=== PATIENT | male | born 1945 | race Caucasian/White ===

== ENCOUNTER 2016-04-08 06:05 | Day surgery (SDC) | payer MEDICARE ==
[~2016-04-08] VITALS: Ht 175.3 cm; Wt 99.2 kg
[2016-04-08 06:43] VITALS: BP 192/87; PULSE 63; RESP 18; TEMP 97; O2SAT 99
[2016-04-08] MEDS ORDERED: LACTATED RINGER'S 1000 ML IV SCH (06:45)
[2016-04-08] MEDS ORDERED: METOPROLOL TARTRATE 25 MG TAB PO PRN (06:45)
[2016-04-08] MEDS ORDERED: INSULIN HUMAN REGULAR 1,000 UNITS/10 ML VIAL SQ PRN (06:45)
[2016-04-08] MEDS ORDERED: SODIUM CHLORID 0.9% 500 ML IV SCH (06:45)
[2016-04-08] MEDS ORDERED: MUPIROCIN 2% OINT 1 APPLIC/GM SYR NASAL SCH (07:00)
[2016-04-08] MEDS ORDERED: NO Heparin, Lovenox, Coumadin at least 12 hours prior to procedure. XX PRN (07:00)
[2016-04-08] MEDS ORDERED: POVIDONE IODINE 5% (ANTISEPSIS KIT) 4 APPLICATIONS EACH NARE SCH (07:00)
[2016-04-08] MEDS ORDERED: WARF-20 PO (07:00)
[2016-04-08] MEDS ORDERED: CENTTAB PO (07:00)
[2016-04-08] MEDS ORDERED: Hold AM Insulin & AM Hypoglycemic medications in diabetic patients XX PRN (07:00)
[2016-04-08] MEDS ORDERED: CALC0.25 PO (07:00)
[2016-04-08] MEDS ORDERED: NS 1000 ML IV SCH (07:00)
[2016-04-08] MEDS ORDERED: LUMI0.01 EACH EYE (07:00)
[2016-04-08] MEDS ORDERED: GLIP5TAB8 PO (07:00)
[2016-04-08] MEDS ORDERED: FURO40TA PO (07:00)
[2016-04-08] MEDS ORDERED: OMEP40CA2 PO (07:00)
[2016-04-08] MEDS ORDERED: ALLO100T PO (07:00)
[2016-04-08] MEDS ORDERED: AMLO5TAB2 PO (07:00)
[2016-04-08] MEDS ORDERED: FLUO40CA PO (07:00)
[2016-04-08] MEDS ORDERED: CHLORHEXIDINE GLUCONATE 2 % 1 PACK (2 CLOTHS) TOP SCH (07:00)
[2016-04-08] MEDS ORDERED: VANCOMYCIN 1000 MG/NS 250 ML IV SCH ×2 (07:00)
[2016-04-08] MEDS ORDERED: VICT18IN SQ (07:00)
[2016-04-08 07:10] LABS: AUTOMATED NEUTROPHIL # 5.2 TH/MM3 (1.8-7.7); BASOPHIL # 0.1 TH/MM3 (0-0.2); BASOPHIL % 0.8 % (0.0-2.0); HEMATOCRIT 34.3 % (39.0-51.0); HEMO FLAGS DIFF FINAL; LYMPH % 12.3 % (9.0-44.0); LYMPHOCYTE # 0.8 TH/MM3 (1.0-4.8); MEAN CELL VOLUME 95.5 FL (80.0-100.0); MEAN CORPUSCULAR HEMOGLOBIN 31.6 PG (27.0-34.0); MEAN CORPUSCULAR HGB CONC 33.1 % (32.0-36.0); MONO % 10.2 % (0.0-8.0); NEUT % 76.7 % (16.0-70.0); PLATELET COUNT 173 TH/MM3 (150-450); RED BLOOD COUNT 3.59 MIL/MM3 (4.50-5.90); RED CELL DISTRIBUTION WIDTH 16.5 % (11.6-17.2); WHITE BLOOD COUNT 6.7 TH/MM3 (4.0-11.0)
[2016-04-08 07:21] LABS: INTERNATIONAL NORMALIZED RATIO 1.1 RATIO; PROTHROMBIN TIME - PATIENT 11.8 SEC (9.8-11.6)
[2016-04-08 07:22] LABS: BICARBONATE 23.9 MEQ/L (21.0-32.0); POTASSIUM 4.9 MEQ/L (3.5-5.1)
[2016-04-08] MEDS ORDERED: MIDAZOLAM HCL 2 MG/2 ML VIAL ONE (08:04)
[2016-04-08] MEDS ORDERED: VANCOMYCIN 500 MG VIAL ONE (08:17)
[2016-04-08] MEDS ORDERED: LIDOCAINE HCL 2% 50 ML VIAL ONE (08:17)
[2016-04-08] MEDS ORDERED: PROPOFOL 200 MG/20 ML AMP IV ONE (09:00)
[2016-04-08] MEDS ORDERED: DO NOT ADM ANY ANTICOAGULANT DRUGS XX PRN ×2 (09:42→09:55)
[2016-04-08] MEDS ORDERED: TEMAZEPAM 15 MG CAP PO PRN (09:45)
[2016-04-08] MEDS ORDERED: BACITRACIN OINT 0.9 GM PKT TOP PRN (09:45)
[2016-04-08] MEDS ORDERED: ALUMINUM/MAGNESIUM/SIMETH 30 ML CUP PO PRN (09:45)
[2016-04-08] MEDS ORDERED: ACETAMINOPHEN/CODEINE 300 MG/30 MG TAB PO PRN ×2 (09:45)
[2016-04-08] MEDS ORDERED: SODIUM CHLORIDE 0.9% FLUSH 5 ML FLUSH IVF PRN (09:45)
[2016-04-08] MEDS ORDERED: ZOLPIDEM TARTRATE 5 MG TAB PO PRN (09:45)
[2016-04-08] MEDS ORDERED: ONDANSETRON HCL 4 MG/2 ML VIAL IV PRN (09:45)
[2016-04-08] MEDS ORDERED: MAGNESIUM HYDROXIDE SUSP 30 ML CUP PO PRN (09:45)
[2016-04-08] MEDS ORDERED: PERC5TAB12 PO (09:53)
--- NOTE | 2016-04-08 10:06 | RADRPT ---
EXAM DATE/TIME: 04/08/2016 09:45 [place] COMPARISON: No previous studies available for comparison. INDICATIONS : Post pacemaker placement. MEDICAL HISTORY : Hypertension. Diabetes mellitus type II. A-fib, Sleep Apnea. SURGICAL HISTORY : CABG. ENCOUNTER: Initial ACUITY: 1 day PAIN SCORE: 0/10 LOCATION: Bilateral chest FINDINGS: A single view of the chest demonstrates the lungs to be symmetrically aerated without evidence of mas s, infiltrate or effusion. There is no evidence of pneumothorax. The heart size is enlarged. There is evidence of previous cardiothoracic surgery. There is a pacemaker overlying the left chest. The bony structures are grossly intact. There is some mild prominence of the pulmonary vasculature.. CONCLUSION: 1. No evidence of pneumothorax. 2. Compensated cardiomegaly with some mild pulmonary venous congestion. Ye Rodriguez MD on April 08, 2016 at 10:02 Board Certified Radiologist. This report was verified electronically.
--- NOTE | 2016-04-08 12:21 | MA ---
cc: NERY POON MD,DONTAE SOUSA,CHERYL HOOK MAI, M.D. DATE: 04/08/2016 DATE OF : 1945 CLINICAL INDICATION The patient is a 70-year-old gentleman with symptomatic ischemic cardiomyopathy, EF of 25%. The patient also has sinus node dysfunction with intermittent symptomatic bradycardia. Currently the patient is in atrial flutter. As the patient came in for a dual-chamber ICD we planned to do atrial flutter ablation later on. The patient had coronary artery disease status post bypass with ischemic cardiomyopathy, EF of 25%. The patient also has chronic systolic heart failure, NYHA class 3. DEVICE INFORMATION [employer] App dual-chamber ICD, Protego, S65, reference number [id number], serial number [id number]. The RV ICD lead is serial number [id number]. The right atrial lead is reference number [id number], serial number [id number]. Right atrial lead sensing atrial flutter is 3.3 millivolts, impedance 490 ohms. RV lead sensing is 15.2 mV, impedance 526 ohms, threshold 0.6 volts at 0.4 milliseconds. There is no stimulation maximum output. Final setting is DDD 60-130 with mode switch on, VT setting 170 and 214, VF setting more than 214. PROCEDURE IN DETAIL The patient was sedated by the anesthesiologist using MAC. The patient was prepped and draped in sterile fashion. The left upper chest was anesthetized. A small incision was made. The pocket was opened. Using a first rib approach we are able to access the axillary vein twice. Using an 8-Portuguese sheath we placed RV ICD lead in the RV apex with good sensing and capture threshold. There was no diaphragmatic stimulation maximum output. The second lead was placed in the right atrial appendage with good sensing of atrial flutter, R-wave sensing 3.3 millivolts. Again we decided to consider atrial flutter ablation later on. Both leads were secured to the muscle layer and attached to the device. Appropriate function of the device and leads was verified. The pocket was copiously irrigated with antibiotic solution and closed in three separate layers. We did check the leads which showed normal function but given history of atrial flutter and the patient off Coumadin we decided to hold off DFT. We did lead testing but would defer the DFT. We plan to bring the patient back for atrial flutter ablation along with BARBARA. CONCLUSION 1. Successful [employer] dual-chamber ICD implantation left upper chest. 2. Successful lead testing but deferred the DFT. ESTIMATED BLOOD LOSS 20 cc. CONTRAST None. PLAN The patient will be discharged home today with outpatient follow-up with [facility], Dr. Sousa and Dr. Poon. MD AKBAR Jones/OSWALD /9:33 AM /12:27 PM MTDChristian
--- NOTE | 2016-04-08 19:18 | EKG ---
Date Performed: 04/08/2016 Time Performed: 09:55:40 PTAGE: 70 years EKG: --- Warning: Data quality may affect interpretation --- Ventricular pacing Lead(s) unsuitab le for analysis: V3 V4 V5 Pacemaker rhythm - no further analysis Abnormal ECG PREVIOUS TRACING : 04/08/2016 07.01 DOCTOR: Vishnu Cooney Interpretating Date/Time 04/08/2016 19:17:09
--- NOTE | 2016-04-08 19:21 | EKG ---
Date Performed: 04/08/2016 Time Performed: 07:01:30 PTAGE: 70 years EKG: atrial flutter Lead(s) unsuitable for analysis: V5 Poor R wave progression - probable charissa l variant Inferior/lateral ST-T changes may be due to myocardial ischemia Abnormal ECG NO PREVIOUS TRACING DOCTOR: Vishnu Cooney Interpretating Date/Time 04/08/2016 19:18:43
[2016-04-08] MEDS ORDERED: SODIUM CHLORIDE 0.9% FLUSH 5 ML FLUSH IVF SCH (21:00)
== END 2016-04-08 16:19 | disposition home or self-care (01) ==
LOC: HDOC 06:05 → HDIC 06:08 → HDOC 16:19
PROVIDERS: ATTEND Internal Medicine Cardiovascular Disease
DX: I11.0 Hypertensive heart disease with heart failure (principal); I50.22 Chronic systolic (congestive) heart failure; I25.5 Ischemic cardiomyopathy; I48.91 Unspecified atrial fibrillation; I49.5 Sick sinus syndrome; I25.10 Atherosclerotic heart disease of native coronary artery without angina pectoris; E11.9 Type 2 diabetes mellitus without complications
CPT/HCPCS: 33249; 71010; 80048; 85025; 85610; 85730; 86850; 86900; 86901; 93005; C1721; C1777; C1779; J2250; J3010; J3370; J7030